=== PATIENT | female | born 1945 | race African-American/Black ===

== ENCOUNTER 2018-04-29 01:29 | Outpatient (CLI) | payer MEDICARE, OTHER ==
[2018-04-29 14:05] LABS: Hemoglobin 13.2 g/dL (12.0-16.0); Mean Corpuscular HGB CONC 31.8 g/dL (32.0-36.0); Mean Corpuscular Hemoglobin 29.7 pg (27.0-31.0); Mean Corpuscular Volume 93.2 fL (78.0-98.0); Mean Platelet Volume 7.8 fL (7.4-10.4); Platelet Count 317 thou/uL (130-400); RBC Distribution Width 13.2 % (11.5-14.5); Red Blood Cell (RBC) Count 4.44 mill/uL (4.20-5.40); White Blood Cell (WBC) Count 7.2 thou/uL (4.8-10.8)
[2018-04-29 14:18] LABS: INR-International Normal Ratio 1.1; Prothrombin Time 13.8 SEC (12.0-14.7)
[2018-04-29 14:25] LABS: Anion Gap 16 mmol/L (10-20); BUN (Urea Nitrogen) 19 mg/dL (9.8-20.1); Calc. Creatinine Clearance 0 mL/min (70-130); Calcium 11.1 mg/dL (7.8-10.44); Carbon Dioxide 24 mmol/L (23-31); Chloride 103 mmol/L (98-107); Estimated GFR-MDRD 54; Glucose 83 mg/dL (83-110); Potassium 3.9 mmol/L (3.5-5.1); Sodium 139 mmol/L (136-145)
[2018-04-29 14:37] LABS: Bilirubin Negative (Negative); Blood, Urine Negative (Negative); Clarity CLEAR (Clear); Glucose, Urine (Dipstick) Negative (Negative); Leukocyte Negative (Negative); Nitrite Negative (Negative); Protein, Urine (Dipstick) Negative (Neg-Trace); Urobilinogen 0.2 mg/dL (0.2-1.0); pH, Urine 5.5 (5.0-9.0)
[2018-04-29 14:43] LABS: Bacteria/HPF None Seen HPF (None Seen); Hyaline Casts/LPF 0-3 HYALINE CAST LPF (0-3 Hyaline); RBC/HPF 0-3 HPF (0-3); Squamous Epithelial None Seen HPF (0-3); WBC/HPF 0-3 HPF (0-3)
== END 2018-04-29 01:30 | disposition home or self-care (01) ==
LOC: LABBT 01:29
PROVIDERS: ATTEND Orthopaedic Surgery
DX: Z01.818 Encounter for other preprocedural examination (principal); M17.12 Unilateral primary osteoarthritis, left knee
CPT/HCPCS: 80048; 81001; 85027; 85610; 86850; 86900; 86901; 87081; 93005; 93010

== ENCOUNTER 2018-05-04 05:25 | Inpatient (IN) | payer MEDICARE, OTHER ==
[2018-04-29 12:48] VITALS: BMI 31.8
[2018-05-04] MEDS ORDERED: Vancomycin HCl 1.5 GM in Sodium Chloride 0.9% 250 ML 300 ML IVPB SCH ×3 (06:00→18:00)
[2018-05-04] MEDS ORDERED: Tranexamic Acid 1,000 MG/10 ML VIAL ONE ×2 (06:12→09:28)
[2018-05-04] MEDS ORDERED: Sodium Chloride 0.9% 100 ML ONE (06:12)
[2018-05-04] MEDS ORDERED: Promethazine HCl 25 MG/ML VIAL SLOW IVP PRN (06:13)
[2018-05-04] MEDS ORDERED: Promethazine HCl 25 MG/ML VIAL IM PRN ×3 (06:13→21:18)
[2018-05-04] MEDS ORDERED: Ondansetron HCl/PF 4 MG/2 ML Vial IVP PRN (06:13)
[2018-05-04] MEDS ORDERED: Midazolam HCl 2 mg/2 ml Vial ONE (06:21)
[2018-05-04] MEDS ORDERED: Fentanyl 100 MCG/2 ML VIAL ONE ×3 (06:21→08:33)
[2018-05-04] MEDS ORDERED: Lidocaine 1% (PF) 30 ML VIAL ONE (06:22)
[2018-05-04] MEDS ORDERED: traMADol HCl 50 MG TAB PO PRN (07:05)
[2018-05-04] MEDS ORDERED: HYDROcodone/Acetaminophen 10/325 mg Tablet PO PRN ×2 (07:05)
[2018-05-04] MEDS ORDERED: Ondansetron PF 4 MG/2 ML Vial IVP PRN ×2 (07:05→21:18)
[2018-05-04] MEDS ORDERED: Zolpidem Tartrate 5 MG TAB PO PRN ×2 (07:05→21:18)
[2018-05-04] MEDS ORDERED: Bupivacaine HCl 0.5%/Epinephrine 1:200,000/PF 30 ml Vial ONE (07:38)
[2018-05-04] MEDS ORDERED: Tranexamic Acid 1,000 MG in Sodium Chloride 0.9% 100 ML IVPB SCH (09:30)
[2018-05-04] MEDS: Sodium Chloride 0.9% 1,000 ML IV SCH ×2 (10:50→21:52)
[2018-05-04] MEDS ORDERED: Fentanyl 100 MCG/2 ML VIAL SLOW IVP PRN (11:15)
[2018-05-04] MEDS ORDERED: diphenhydrAMINE 25 MG CAP PO PRN ×2 (11:15→21:18)
[2018-05-04] MEDS ORDERED: CEFAZOLIN/Water 2 GM/20 ML SYRINGE SLOW IVP SCH (11:15)
--- NOTE | 2018-05-04 11:17 | RAD ---
LEFT KNEE TWO VIEWS: HISTORY: Postop total knee. COMPARISON: Knee radiograph from 09/03/2017. FINDINGS: Satisfactory postop appearance, left total knee arthroplasty and patella resurfacing. Expected posto perative gas and edema. IMPRESSION: Satisfactory postoperative appearance. POS: TPC
[2018-05-04] MEDS: traMADol HCl 50 MG TAB PO PRN ×2 (11:42→19:48)
--- NOTE | 2018-05-04 13:02 | OP ---
DATE OF PROCEDURE: 05/04/2018 PREOPERATIVE DIAGNOSIS: Left knee osteoarthritis. POSTOPERATIVE DIAGNOSIS: Left knee osteoarthritis. PROCEDURE PREFORMED: Left total knee arthroplasty. MANAGER PERFORMANCE IMPROVEMENT: Lou Edmonds PA-C. ANESTHESIA The patient received a LMA with a single shot sciatic and an adductor canal. ESTIMATED BLOOD LOSS: 100 mL. TOURNIQUET TIME: 90 minutes at 300 mmHg. ANTIBIOTICS: Ancef 2 g, vancomycin 1.5 g, and TXA 1 g. IMPLANTS: The patient had a size 4 CR femur, a 29 patella, X3 poly, size 4 tibial triathlon base plate, and a 4 CS 9 mm poly triathlon. COMPLICATIONS: None. HISTORY OF PRESENT ILLNESS: Ms. Wilkinson is a 72-year-old female, presenting with left knee pain for several years. The patient had varus arthritis. I discussed with her the risks and benefits of left total knee arthroplasty include pain, scar, bleeding, infection, damage to vital structures, decreased range of motion or strength, loss of life or limb. The patient understood these risks and benefits , and elected to proceed. DESCRIPTION OF PROCEDURE: Time-out was performed designating the patient's left lower extremity as the operative site, based on site, consents, and marking. After time-out, the patient's left lower extremity was prepped and draped in sterile fashion. Tourniquet was brought up for a total of 90 minutes. Anterior midline incision in the patellar arthrotomy was performed. We excised the fat pad, everted the patella, pinned our guide, mapped out the distal femur cut, first 9 and 5 and ultimately 11 and 7 for the patient's distal femoral cut. We removed osteophytes , pinned our external rotation guide into place, measured to size 4. We then found the epicondylar axis, we then cut for a size 4. The patient had a 4 block cut, removed all the osteophytes and had a good piano sign. We then removed osteophytes inferomedially. We then exposed the patient's tibia and putting a pickle fork in position. We cut the tibial tubercle to help pinning our tray into position. We pinned and mapped out and cut at -1 and 8 and 1 degree varus with 4 degrees of posterior slope. We removed the osteophytes. We went back to the patient's PCL. PCL had been partially torn. We decompressed with the lamina spreaders posterior latera and medial menisci, decompressed the posterior condyles and took down the medial condyle e osteophytes that were tending the MCL as well as on the tibia. We left a small defect that was less than 5 mm on the tibia, moved back. We pinned our 4 tray into position and placed a 9 poly and placed a 4 CR femur, which just slightly off medially, but the patient tracked well, the drawer had good stability medially and laterally, came to full extension and tracked back well liked the overall position. Therefore, we elected to take it. We cut our patella down from 25 mm down to about 13, placed a 29 patella, which tracked well. We drilled the holes for the patellar, drilled holes for femoral left. We then removed all this, cut our keel, washed out all the implants and placed our tibia into position. We cemented our tibia, leaving some excess in the posterior medial aspect of the tibia. We then placed a 9 poly, removed all excess cement and placed our femur cemented into position, we cemented our patella. We then washed and make sure all the excess cement was removed. We then washed and closed the medial patellar arthrotomy with #2 Quill, 0 Quill, 2-0 Quill and glue. The patient will be admitted per Keddie's protocol. We will minimize the patient's NSAID use given her history of diabetes and creatinine 1.2. Job ID: [id number] [facility]
[2018-05-04] MEDS ORDERED: Ropivacaine 0.2% HCl/PF (40 MG/20 ML VIAL) ONE (13:39)
[2018-05-04] MEDS ORDERED: Ropivacaine 0.5% HCl/PF (150 MG/30 ML VIAL) ONE (13:39)
[2018-05-04] MEDS: CEFAZOLIN 2 GM in Premix Bag 1 BAG IVPB SCH ×2 (13:57→22:24)
[2018-05-04] MEDS: Fentanyl 100 MCG/2 ML VIAL IV PRN ×3 (13:59→21:07)
[2018-05-04] MEDS ORDERED: Lidocaine 1% PF 5 ML VIAL ONE (14:18)
[2018-05-04] MEDS ORDERED: Ondansetron PF 4 MG/2 ML Vial ONE (14:18)
[2018-05-04] MEDS ORDERED: PROPOFOL 200 MG/20 ML VIAL ONE (14:18)
[2018-05-04] MEDS: cloNIDine 0.2 MG TAB PO SCH ×2 (15:00→19:46)
[2018-05-04] MEDS: Carvedilol 6.25 MG TAB PO SCH (19:47)
[2018-05-04] MEDS: hydrALAZINE 25 MG TAB PO SCH (19:47)
[2018-05-04] MEDS: Aspirin 81 mg Enteric Coated Tablet PO SCH (19:47)
[2018-05-04] MEDS: Atorvastatin Calcium 10 MG TAB PO SCH (19:47)
[2018-05-04] MEDS: Acetaminophen 325 MG TAB PO PRN (19:49)
[2018-05-04] MEDS ORDERED: Amlodipine 5 mg/Benazepril 20 mg CAP PO SCH (21:00)
[2018-05-04] MEDS ORDERED: fentaNYL Citrate/PF 2,000 MCG in Sodium Chloride 0.9% 60 ML IV PRN (21:18)
[2018-05-04] MEDS ORDERED: diphenhydrAMINE 50 MG/ML VIAL IM PRN (21:18)
[2018-05-04] MEDS ORDERED: diphenhydrAMINE 50 MG/ML VIAL IVP PRN (21:18)
[2018-05-04] MEDS ORDERED: Naloxone HCl 0.4 mg/ml Vial IV PRN (21:18)
[2018-05-04] MEDS ORDERED: Ketorolac Tromethamine 30 MG/ML VIAL IVP PRN (21:18)
--- NOTE | 2018-05-04 21:26 | PDOC.PN ---
- Subjective Encounter Start Date: 05/04/18 Encounter Start Time: 18:30 Patient seen and examined for med mngt. No new complaints. No overnight events - Objective MAR Reviewed: Yes Vital Signs & Weight: Vital Signs (12 hours) Temp Pulse Resp BP BP Pulse Ox 05/04/18 21:09 110 H 14 95 05/04/18 19:49 99 F 98 14 162/78 H 95 05/04/18 19:47 98 162/78 H 05/04/18 19:46 162/78 H 05/04/18 15:00 170/77 H 05/04/18 10:50 97.9 F 87 16 160/73 H 97 Weight Weight 197 lb Result Diagrams: 05/05/18 06:02 Additional Labs: Accuchecks 05/04/18 15:55 POC Glucose 131 H Laboratory Tests 04/29/18 13:30 BUN 19 Creatinine 1.18 H EKG Reviewed by me: Yes ( SR) Phys Exam - Physical Examination Constitutional: NAD Respiratory: no wheezing, no rhonchi Cardiovascular: RRR, no rub Gastrointestinal: soft, non-tender, positive bowel sounds Musculoskeletal: no edema Neurological: non-focal, moves all 4 limbs Dx/Plan - Plan DVT proph w/SCDs 1. HTN 2. HLD 3. DM2 4. CKD3 5. Obesity BMI 31.8 PLAN: Add holding parameters to Clonidine, Hydralazine, Coreg and Lotrel Add low dose sliding scale Cont to monitor Will follow. Thank you for this consultation. Full code. DPOA- self/family Review of Systems - Review of Systems Cardiovascular: negative: chest pain, palpitations, orthopnea, paroxysmal nocturnal dyspnea, edema, light headedness, other Gastrointestinal: negative: Nausea, Vomiting, Abdominal Pain, Diarrhea, Constipation, Melena, Hematochezia, Other - Medications/Allergies Allergies/Adverse Reactions: Allergies Allergy/AdvReac Type Severity Reaction Status Date / Time codeine Allergy Verified 04/29/18 12:48 Medications: Current Medications Acetaminophen (Tylenol) 650 mg PO Q4H PRN PRN Reason: Headache/Fever or Pain Last Admin: 05/04/18 19:49 Dose: 650 mg Hydrocodone Bitart/Acetaminophen ([place] 10/325) 1 tab PO Q4H PRN PRN Reason: Pain (1-3) Hydrocodone Bitart/Acetaminophen ([place] 10/325) 2 tab PO Q4H PRN PRN Reason: PAIN (4-6) Amlodipine/Benazepril HCl (Lotrel 08/02) 2 cap PO HS [facility] Aspirin (Ecotrin) 81 mg PO BID [facility] Last Admin: 05/04/18 19:47 Dose: 81 mg Atorvastatin Calcium (Lipitor) 10 mg PO HS [facility] Last Admin: 05/04/18 19:47 Dose: 10 mg Carvedilol (Coreg) 6.25 mg PO BID [facility] Last Admin: 05/04/18 19:47 Dose: 6.25 mg Clonidine (Catapres) 0.2 mg PO TID [facility] Last Admin: 05/04/18 19:46 Dose: 0.2 mg Diphenhydramine HCl (Benadryl) 25 mg PO Q6H PRN PRN Reason: Itching Last Admin: 05/04/18 21:07 Dose: 25 mg Diphenhydramine HCl (Benadryl) 25 mg IVP Q3H PRN PRN Reason: Itching Diphenhydramine HCl (Benadryl) 25 mg PO Q3H PRN PRN Reason: Itching Diphenhydramine HCl (Benadryl) 25 mg IM Q3H PRN PRN Reason: Itching Fentanyl (Sublimaze) 50 mcg IV Q1H PRN PRN Reason: BREAKTHROUGH PAIN Last Admin: 05/04/18 21:07 Dose: 50 mcg Ferrous Gluconate (Fergon) 324 mg PO BID-[facility] Hydralazine HCl (Apresoline) 25 mg PO BID [facility] Last Admin: 05/04/18 19:47 Dose: 25 mg Hydrochlorothiazide (Hydrochlorothiazide) 25 mg PO DAILY [facility] Ropivacaine 250 ml/ Device 250 mls @ 0 mls/hr NERVE BLCK INF [facility] Sodium Chloride (Normal Saline 0.9%) 1,000 mls @ 100 mls/hr IV .Q10H [facility] Last Admin: 05/04/18 10:50 Dose: 1,000 mls Cefazolin Sodium/Dextrose 2 gm (/ Device) 50 mls @ 100 mls/hr IVPB Q8HR [facility] Stop: 05/04/18 22:29 Last Admin: 05/04/18 13:57 Dose: 50 mls Fentanyl Citrate 2,000 mcg/ (Sodium Chloride) 100 mls @ 0 mls/hr IV INF PRN PRN Reason: Pain Iron/Minerals/Multivitamins (Theragran M) 1 tab PO DAILY [facility] Ketorolac Tromethamine (Toradol) 15 mg IVP Q6H PRN PRN Reason: Moderate Pain (4-6) Stop: 05/07/18 21:19 Loratadine (Claritin) 10 mg PO DAILY [facility] Metformin HCl (Glucophage) 500 mg PO QA-[facility] Miscellaneous Information (Communication Order-Pharmacy) 1 each FS ONE [facility] Naloxone HCl (Narcan) 0.2 mg IV Q5MIN PRN PRN Reason: Opiate Reversal Ondansetron HCl (Zofran) 4 mg IVP Q6H PRN PRN Reason: Nausea/Vomiting Last Admin: 05/04/18 15:00 Dose: 4 mg Ondansetron HCl (Zofran) 4 mg IVP Q6H PRN PRN Reason: Nausea/Vomiting Promethazine HCl (Phenergan) 12.5 mg IM Q4H PRN PRN Reason: Nausea Promethazine HCl (Phenergan) 12.5 mg IM Q4H PRN PRN Reason: Nausea/Vomiting Senna/Docusate Sodium (Senokot S) 2 tab PO BID [facility] Sodium Chloride (Flush - Normal Saline) 10 ml IVF PRN PRN PRN Reason: Saline Flush Tramadol HCl (Ultram) 50 mg PO Q6H PRN PRN Reason: Mild Pain (1-3) Tramadol HCl (Ultram) 100 mg PO Q6H PRN PRN Reason: Moderate Pain 4-6 Last Admin: 05/04/18 19:48 Dose: 100 mg Zolpidem Tartrate (Ambien) 5 mg PO HSPRN PRN PRN Reason: Insomnia Zolpidem Tartrate (Ambien) 5 mg PO HSPRN PRN PRN Reason: Insomnia
[2018-05-04] MEDS ORDERED: Communication Order-Pharmacy FS SCH (21:30)
[2018-05-05 06:35] LABS: Hemoglobin 11.8 g/dL (12.0-16.0); Mean Corpuscular Hemoglobin 29.7 pg (27.0-31.0); Mean Corpuscular Volume 92.9 fL (78.0-98.0); Mean Platelet Volume 7.8 fL (7.4-10.4); Platelet Count 280 thou/uL (130-400); RBC Distribution Width 12.9 % (11.5-14.5); Red Blood Cell (RBC) Count 3.96 mill/uL (4.20-5.40)
[2018-05-05] MEDS ORDERED: Insulin Regular 300 UNITS/3 ML VIAL SC PRN ×2 (09:00)
[2018-05-05] MEDS ORDERED: Hydrochlorothiazide 25 MG TAB PO SCH (09:00)
[2018-05-05] MEDS ORDERED: Dextrose 5% in Water 1,000 ML IV PRN (09:00)
[2018-05-05] MEDS ORDERED: Dextrose 50% Abboject 50 ML SYRINGE SLOW IVP PRN (09:00)
[2018-05-05] MEDS ORDERED: hydrALAZINE 20 MG/ML VIAL SLOW IVP PRN (09:00)
[2018-05-05] MEDS: Senokot S 8.6-50 MG TAB PO SCH ×2 (10:09→22:07)
[2018-05-05] MEDS: Ferrous Gluconate 324 MG TAB PO SCH ×2 (10:09→16:54)
[2018-05-05] MEDS: metFORMIN 500 MG TAB PO SCH (10:09)
[2018-05-05] MEDS: Loratadine 10 MG TAB PO SCH (10:10)
[2018-05-05] MEDS: cloNIDine 0.2 MG TAB PO SCH ×4 (10:10→21:35)
[2018-05-05] MEDS: Carvedilol 6.25 MG TAB PO SCH ×3 (10:10→21:35)
[2018-05-05] MEDS: hydrALAZINE 25 MG TAB PO SCH ×3 (10:10→21:35)
[2018-05-05] MEDS: Multivitamin W/ Minerals 1 TAB PO SCH (10:10)
[2018-05-05] MEDS: Sodium Chloride 0.9% 1,000 ML IV SCH ×2 (10:17→14:28)
[2018-05-05] MEDS: Ropivacaine HCl/PF 250 ML in Premix Bag 1 BAG NERVE BLCK SCH (10:18)
[2018-05-05] MEDS: Aspirin 81 mg Enteric Coated Tablet PO SCH ×2 (11:14→21:35)
[2018-05-05] MEDS ORDERED: Amlodipine 5 mg/Benazepril 20 mg CAP PO SCH (21:00)
[2018-05-05] MEDS: Atorvastatin Calcium 10 MG TAB PO SCH (21:34)
[2018-05-05] MEDS: Amlodipine 5 mg/Benazepril 20 mg CAP PO SCH (21:34)
--- NOTE | 2018-05-05 22:00 | PDOC.PN ---
- Subjective Encounter Start Date: 05/05/18 Encounter Start Time: 18:30 Patient seen and examined for med mngt. Pain better controlled with [employer]. No CP/ SOB. No new complaints. No overnight events - Objective MAR Reviewed: Yes Vital Signs & Weight: Vital Signs (12 hours) Temp Pulse Resp BP BP Pulse Ox 05/05/18 21:35 102 H 121/70 05/05/18 20:00 98.8 F 101 H 20 121/70 94 L 05/05/18 16:18 98.1 F 92 18 103/65 93 L 05/05/18 14:43 145/81 H 05/05/18 12:25 97.6 F 86 18 104/64 96 05/05/18 10:12 89 162/78 H 05/05/18 10:10 89 162/78 H Weight Admit Weight 197 lb Weight 197 lb I&O: 05/04/18 05/05/18 05/06/18 06:59 06:59 06:59 Intake Total 885 1800 Output Total 750 Balance 135 1800 Result Diagrams: 05/06/18 05:20 Additional Labs: Accuchecks 05/05/18 05/05/18 05/05/18 16:16 11:16 05:36 POC Glucose 107 130 H 121 H 05/04/18 21:12 POC Glucose 131 H Phys Exam - Physical Examination Constitutional: NAD Respiratory: no wheezing, no rhonchi Cardiovascular: RRR, no rub Gastrointestinal: soft, non-tender, positive bowel sounds Musculoskeletal: no edema Dx/Plan - Plan DVT proph w/SCDs 1. HTN - better controlled 2. HLD 3. DM2 4. CKD3 5. Obesity BMI 31.8 PLAN: Cont Clonidine Will hold Hydralazine, Coreg and Lotrel if SBP <130-140 Cont low dose sliding scale Cont to monitor Review of Systems - Review of Systems Cardiovascular: negative: chest pain, palpitations, orthopnea, paroxysmal nocturnal dyspnea, edema, light headedness, other Gastrointestinal: negative: Nausea, Vomiting, Abdominal Pain, Diarrhea, Constipation, Melena, Hematochezia, Other - Medications/Allergies Allergies/Adverse Reactions: Allergies Allergy/AdvReac Type Severity Reaction Status Date / Time codeine Allergy Verified 04/29/18 12:48 Medications: Current Medications Acetaminophen (Tylenol) 650 mg PO Q4H PRN PRN Reason: Headache/Fever or Pain Last Admin: 05/04/18 19:49 Dose: 650 mg Amlodipine/Benazepril HCl (Lotrel 08/02) 1 cap PO BID [facility] Last Admin: 05/05/18 21:34 Dose: 1 cap Aspirin (Ecotrin) 81 mg PO BID [facility] Last Admin: 05/05/18 21:35 Dose: 81 mg Atorvastatin Calcium (Lipitor) 10 mg PO HS [facility] Last Admin: 05/05/18 21:34 Dose: 10 mg Carvedilol (Coreg) 6.25 mg PO BID [facility] Last Admin: 05/05/18 21:35 Dose: 6.25 mg Clonidine (Catapres) 0.2 mg PO TID [facility] Last Admin: 05/05/18 21:35 Dose: 0.2 mg Dextrose/Water (Dextrose 50%) 25 gm SLOW IVP PRN PRN PRN Reason: Hypoglycemia Diphenhydramine HCl (Benadryl) 25 mg IVP Q3H PRN PRN Reason: Itching Diphenhydramine HCl (Benadryl) 25 mg PO Q3H PRN PRN Reason: Itching Diphenhydramine HCl (Benadryl) 25 mg IM Q3H PRN PRN Reason: Itching Ferrous Gluconate (Fergon) 324 mg PO BID-[facility] Last Admin: 05/05/18 16:54 Dose: 324 mg Glucagon (Glucagon) 1 mg IM PRN PRN PRN Reason: Hypoglycemia Hydralazine HCl (Apresoline) 10 mg SLOW IVP Q4H PRN PRN Reason: SBP Greater Than 180 Hydralazine HCl (Apresoline) 25 mg PO BID [facility] Last Admin: 05/05/18 21:35 Dose: 25 mg Hydrochlorothiazide (Hydrochlorothiazide) 25 mg PO DAILY [facility] Ropivacaine 250 ml/ Device 250 mls @ 0 mls/hr NERVE BLCK INF [facility] Last Admin: 05/05/18 10:18 Dose: 250 mls Sodium Chloride (Normal Saline 0.9%) 1,000 mls @ 100 mls/hr IV .Q10H [facility] Last Admin: 05/05/18 14:28 Dose: Not Given Fentanyl Citrate 2,000 mcg/ (Sodium Chloride) 100 mls @ 0 mls/hr IV INF PRN PRN Reason: Pain Last Admin: 02/19/19 21:45 Dose: 100 mls Dextrose/Water (D5w) 1,000 mls @ 0 mls/hr IV .Q0M PRN PRN Reason: Hypoglycemia Iron/Minerals/Multivitamins (Theragran M) 1 tab PO DAILY [facility] Last Admin: 05/05/18 10:10 Dose: 1 tab Ketorolac Tromethamine (Toradol) 15 mg IVP Q6H PRN PRN Reason: Moderate Pain (4-6) Stop: 05/07/18 21:19 Last Admin: 05/05/18 10:08 Dose: 15 mg Loratadine (Claritin) 10 mg PO DAILY [facility] Last Admin: 05/05/18 10:10 Dose: 10 mg Metformin HCl (Glucophage) 500 mg PO QA-[facility] Last Admin: 05/05/18 10:09 Dose: 500 mg Naloxone HCl (Narcan) 0.2 mg IV Q5MIN PRN PRN Reason: Opiate Reversal Ondansetron HCl (Zofran) 4 mg IVP Q6H PRN PRN Reason: Nausea/Vomiting Promethazine HCl (Phenergan) 12.5 mg IM Q4H PRN PRN Reason: Nausea/Vomiting Senna/Docusate Sodium (Senokot S) 2 tab PO BID [facility] Last Admin: 05/05/18 10:09 Dose: 2 tab Sodium Chloride (Flush - Normal Saline) 10 ml IVF PRN PRN PRN Reason: Saline Flush Zolpidem Tartrate (Ambien) 5 mg PO HSPRN PRN PRN Reason: Insomnia
[2018-05-06] MEDS: Acetaminophen 325 MG TAB PO PRN (03:56)
[2018-05-06] MEDS: Sodium Chloride 0.9% 1,000 ML IV SCH ×2 (05:13→13:35)
[2018-05-06 06:20] LABS: Hemoglobin 10.4 g/dL (12.0-16.0); Mean Corpuscular HGB CONC 32.2 g/dL (32.0-36.0); Mean Corpuscular Hemoglobin 30.1 pg (27.0-31.0); Mean Corpuscular Volume 93.8 fL (78.0-98.0); Mean Platelet Volume 8.3 fL (7.4-10.4); Platelet Count 218 thou/uL (130-400); RBC Distribution Width 13.1 % (11.5-14.5); Red Blood Cell (RBC) Count 3.45 mill/uL (4.20-5.40); White Blood Cell (WBC) Count 9.3 thou/uL (4.8-10.8)
[2018-05-06] MEDS: Ferrous Gluconate 324 MG TAB PO SCH ×2 (09:06→17:05)
[2018-05-06] MEDS: Loratadine 10 MG TAB PO SCH (09:06)
[2018-05-06] MEDS: Multivitamin W/ Minerals 1 TAB PO SCH (09:06)
[2018-05-06] MEDS: Senokot S 8.6-50 MG TAB PO SCH ×2 (09:06→21:00)
[2018-05-06] MEDS: metFORMIN 500 MG TAB PO SCH (09:06)
[2018-05-06] MEDS: Aspirin 81 mg Enteric Coated Tablet PO SCH ×2 (09:06→21:01)
[2018-05-06] MEDS: Amlodipine 5 mg/Benazepril 20 mg CAP PO SCH ×2 (10:19→21:00)
[2018-05-06] MEDS: Carvedilol 6.25 MG TAB PO SCH ×2 (10:19→21:01)
[2018-05-06] MEDS: hydrALAZINE 25 MG TAB PO SCH ×2 (10:20→22:37)
[2018-05-06] MEDS: cloNIDine 0.2 MG TAB PO SCH ×3 (10:20→21:00)
[2018-05-06] MEDS: Hydrochlorothiazide 25 MG TAB PO SCH (10:20)
[2018-05-06] MEDS ORDERED: HYDROcodone/Acetaminophen 5/325 mg Tablet PO PRN (10:25)
[2018-05-06] MEDS: HYDROcodone/Acetaminophen 5/325 mg Tablet PO PRN ×3 (11:29→21:05)
[2018-05-06] MEDS: Ropivacaine HCl/PF 250 ML in Premix Bag 1 BAG NERVE BLCK SCH (12:21)
--- NOTE | 2018-05-06 19:13 | PDOC.PN ---
- Subjective Encounter Start Date: 05/06/18 Encounter Start Time: 10:30 Patient seen and examined for med mngt. Pain controlled. No CP/SOB/ Palpitations. No new complaints. No overnight events - Objective MAR Reviewed: Yes Vital Signs & Weight: Vital Signs (12 hours) Temp Pulse Resp BP BP Pulse Ox 05/06/18 17:05 92 112/70 05/06/18 15:15 98.4 F 109 H 16 147/59 H 97 05/06/18 15:02 148/78 H 05/06/18 11:58 98.4 F 101 H 18 149/80 H 97 05/06/18 08:39 95 05/06/18 07:30 98.8 F 88 16 109/65 95 Weight Admit Weight 197 lb Weight 197 lb I&O: 05/05/18 05/06/18 05/07/18 06:59 06:59 06:59 Intake Total 885 1800 Output Total 750 Balance 135 1800 Result Diagrams: 05/06/18 05:20 Phys Exam - Physical Examination Constitutional: NAD Respiratory: no wheezing, no rhonchi Cardiovascular: RRR, no rub Gastrointestinal: soft, non-tender, positive bowel sounds Musculoskeletal: no edema Dx/Plan - Plan DVT proph w/SCDs 1. HTN 2. HLD 3. DM2 4. CKD3 5. Obesity BMI 31.8 PLAN: Cont Clonidine, Hydralazine, Coreg and Lotrel with holding parameters dc sliding scale Cont to monitor Cont Metformin Review of Systems - Review of Systems Respiratory: negative: Cough, Dry, Shortness of Breath, Hemoptysis, SOB with Excertion, Pleuritic Pain, Sputum, Wheezing Cardiovascular: negative: chest pain, palpitations, orthopnea, paroxysmal nocturnal dyspnea, edema, light headedness, other - Medications/Allergies Allergies/Adverse Reactions: Allergies Allergy/AdvReac Type Severity Reaction Status Date / Time codeine Allergy Verified 04/29/18 12:48 Medications: Current Medications Acetaminophen (Tylenol) 650 mg PO Q4H PRN PRN Reason: Headache/Fever or Pain Last Admin: 05/06/18 03:56 Dose: 650 mg Hydrocodone Bitart/Acetaminophen ([place] 5/325) 1 tab PO Q4H PRN PRN Reason: Mild Pain (1-3) Hydrocodone Bitart/Acetaminophen ([place] 5/325) 2 tab PO Q4H PRN PRN Reason: Mild-Moderate Pain (1-5) Last Admin: 05/06/18 15:33 Dose: 2 tab Amlodipine/Benazepril HCl (Lotrel 08/02) 1 cap PO BID [facility] Last Admin: 05/06/18 10:19 Dose: Not Given Aspirin (Ecotrin) 81 mg PO BID [facility] Last Admin: 05/06/18 09:06 Dose: 81 mg Atorvastatin Calcium (Lipitor) 10 mg PO HS [facility] Last Admin: 05/05/18 21:34 Dose: 10 mg Carvedilol (Coreg) 6.25 mg PO BID [facility] Last Admin: 05/06/18 10:19 Dose: Not Given Clonidine (Catapres) 0.2 mg PO TID [facility] Last Admin: 05/06/18 15:02 Dose: 0.2 mg Dextrose/Water (Dextrose 50%) 25 gm SLOW IVP PRN PRN PRN Reason: Hypoglycemia Diphenhydramine HCl (Benadryl) 25 mg IVP Q3H PRN PRN Reason: Itching Diphenhydramine HCl (Benadryl) 25 mg PO Q3H PRN PRN Reason: Itching Diphenhydramine HCl (Benadryl) 25 mg IM Q3H PRN PRN Reason: Itching Ferrous Gluconate (Fergon) 324 mg PO BID-[facility] Last Admin: 05/06/18 17:05 Dose: 324 mg Glucagon (Glucagon) 1 mg IM PRN PRN PRN Reason: Hypoglycemia Hydralazine HCl (Apresoline) 10 mg SLOW IVP Q4H PRN PRN Reason: SBP Greater Than 180 Hydralazine HCl (Apresoline) 25 mg PO BID [facility] Last Admin: 05/06/18 10:20 Dose: Not Given Hydrochlorothiazide (Hydrochlorothiazide) 25 mg PO DAILY [facility] Last Admin: 05/06/18 10:20 Dose: Not Given Ropivacaine 250 ml/ Device 250 mls @ 0 mls/hr NERVE BLCK INF [facility] Last Admin: 05/06/18 12:21 Dose: 250 mls Dextrose/Water (D5w) 1,000 mls @ 0 mls/hr IV .Q0M PRN PRN Reason: Hypoglycemia Iron/Minerals/Multivitamins (Theragran M) 1 tab PO DAILY [facility] Last Admin: 05/06/18 09:06 Dose: 1 tab Ketorolac Tromethamine (Toradol) 15 mg IVP Q6H PRN PRN Reason: Moderate Pain (4-6) Stop: 05/07/18 21:19 Last Admin: 05/05/18 10:08 Dose: 15 mg Loratadine (Claritin) 10 mg PO DAILY [facility] Last Admin: 05/06/18 09:06 Dose: 10 mg Metformin HCl (Glucophage) 500 mg PO QA-[facility] Last Admin: 05/06/18 09:06 Dose: 500 mg Naloxone HCl (Narcan) 0.2 mg IV Q5MIN PRN PRN Reason: Opiate Reversal Ondansetron HCl (Zofran) 4 mg IVP Q6H PRN PRN Reason: Nausea/Vomiting Promethazine HCl (Phenergan) 12.5 mg IM Q4H PRN PRN Reason: Nausea/Vomiting Senna/Docusate Sodium (Senokot S) 2 tab PO BID [facility] Last Admin: 05/06/18 09:06 Dose: 2 tab Sodium Chloride (Flush - Normal Saline) 10 ml IVF PRN PRN PRN Reason: Saline Flush Zolpidem Tartrate (Ambien) 5 mg PO HSPRN PRN PRN Reason: Insomnia
[2018-05-06] MEDS: Atorvastatin Calcium 10 MG TAB PO SCH (21:01)
[2018-05-07 06:24] LABS: Hemoglobin 11.1 g/dL (12.0-16.0); Mean Corpuscular HGB CONC 32.6 g/dL (32.0-36.0); Mean Corpuscular Hemoglobin 30.5 pg (27.0-31.0); Mean Corpuscular Volume 93.7 fL (78.0-98.0); Mean Platelet Volume 7.9 fL (7.4-10.4); Platelet Count 282 thou/uL (130-400); Red Blood Cell (RBC) Count 3.62 mill/uL (4.20-5.40); White Blood Cell (WBC) Count 10.3 thou/uL (4.8-10.8)
[2018-05-07 08:12] VITALS: BP 145/79; TEMP 100
[2018-05-07] MEDS: Ferrous Gluconate 324 MG TAB PO SCH (08:59)
[2018-05-07] MEDS: metFORMIN 500 MG TAB PO SCH (08:59)
[2018-05-07] MEDS: Aspirin 81 mg Enteric Coated Tablet PO SCH (09:02)
[2018-05-07] MEDS: Multivitamin W/ Minerals 1 TAB PO SCH (09:02)
[2018-05-07] MEDS: cloNIDine 0.2 MG TAB PO SCH (09:02)
[2018-05-07] MEDS: Amlodipine 5 mg/Benazepril 20 mg CAP PO SCH (09:02)
[2018-05-07] MEDS: Hydrochlorothiazide 25 MG TAB PO SCH (09:02)
[2018-05-07] MEDS: Carvedilol 6.25 MG TAB PO SCH (09:02)
[2018-05-07] MEDS: Senokot S 8.6-50 MG TAB PO SCH (09:02)
[2018-05-07] MEDS: hydrALAZINE 25 MG TAB PO SCH (09:03)
[2018-05-07] MEDS: Loratadine 10 MG TAB PO SCH (09:03)
== END 2018-05-07 11:52 | disposition swing bed (61) | DRG 470 ==
LOC: SDC 05:25 → SURG B 09:51
PROVIDERS: ADMIT Orthopaedic Surgery; ATTEND Orthopaedic Surgery
PROC: 0SRD0J9 Replacement of Left Knee Joint with Synthetic Substitute, Cemented, Open Approach (ICD-10-PCS; principal; 2018-05-04)
DX: M17.12 Unilateral primary osteoarthritis, left knee (principal); E78.5 Hyperlipidemia, unspecified; E11.22 Type 2 diabetes mellitus with diabetic chronic kidney disease; N18.3 Chronic kidney disease, stage 3 (moderate); E66.9 Obesity, unspecified; I12.9 Hypertensive chronic kidney disease with stage 1 through stage 4 chronic kidney disease, or unspecified chronic kidney disease; Z68.31 Body mass index [BMI] 31.0-31.9, adult
CPT/HCPCS: 36415; 36416; 85027; C1713; C1776; J0670; J1885; J2001; J2250; J2405; J2704; J2795; J3010; J3370; J7050; Q0163